=== PATIENT | female | born 2000 | race African-American/Black ===

== ENCOUNTER 2020-08-30 18:55 | Emergency (ER) | payer SELFPAY ==
--- NOTE | 2020-08-30 20:19 | ER Document Report ---
ED Medical Screen (RME) - General Chief Complaint: Abdominal Pain Stated Complaint: ABDOMINAL/BACK PAIN, PAINFUL URINATION Time Seen by Provider: 08/30/20 20:10 Mode of Arrival: Ambulatory Information source: Patient Notes: 19-year-old female presented to ED for bilateral abdominal pain pelvic pain. She states her last menstrual period started on 08/26/2020. She states it is a normal time for her normal menstrual cycle. But this was heavier than normal. She states was recently diagnosed with ovarian cyst was larger than the ovary. Patient states she does have a history of hypothyroid anemia anxiety depression tonsils and adenoids removed ovarian cyst and she does use a vapor cigarette. She does not drink or use any drugs. I have greeted and performed a rapid initial assessment of this patient. A comprehensive ED assessment and evaluation of the patient, analysis of test results and completion of medical decision making process will be conducted by an additional ED providers. - Related Data Allergies/Adverse Reactions: No Known Allergies Allergy (Unverified 08/30/20 20:11) Physical Exam - Vital signs Vitals: Temp 98.2 F 08/30/20 20:14 Course - Vital Signs Vital signs: Temp Pulse Resp BP Pulse Ox 98.2 F 78 12 134/82 H 100 08/30/20 20:18 08/30/20 20:18 08/30/20 20:18 08/30/20 20:18 08/30/20 20:18
[2020-08-30 21:33] LABS: APPEARANCE,URINE SLIGHTLY-CLOUDY; BILIRUBIN,URINE NEGATIVE (NEGATIVE); COLOR,URINE YELLOW; GLUCOSE, URINE NEGATIVE (NEGATIVE); KETONES,URINE NEGATIVE (NEGATIVE); LEUKOCYTE ESTERASE,URINE NEGATIVE (NEGATIVE); NITRITE,URINE NEGATIVE (NEGATIVE); PROTEIN,URINE 30 mg/dL (NEGATIVE); URINE SPECIFIC GRAVITY 1.034
--- NOTE | 2020-08-30 21:58 | RADIOLOGY REPORT (SQ) ---
US PELVIS TRANSVAGINAL HISTORY: 19 years Female bilateral pelvic pain. COMPARISON: No relevant studies are available for comparison. Technique: Transvaginal Imaging of the pelvis was performed. Color and spectral imaging was performed. Uterus: The uterus measures 8.6 x 4.9 x 3.7 cm. The endometrium is normal measuring 3.4 mm. Cervix is closed measuring 2.3 cm. There is a small nabothian cyst in the cervix which measures up to 5 mm. Right Ovary: The ovary measures 2.9 x 2.5 x 2.3 cm and is morphologically normal.. Normal color and spectral doppler waveforms Left Ovary: The ovary measures 3.4 x 1.9 x 2.2 cm and is morphologically normal.. Normal color and spectral doppler waveforms Other: No adnexal mass. No free fluid. IMPRESSION: Unremarkable pelvic ultrasound.
[2020-08-30 22:15] LABS: ABSOLUTE EOSINOPHILS # (AUTO) 0.6 10^3/uL (0.0-0.6); ABSOLUTE LYMPHOCYTES (AUTO) 3.1 10^3/uL (0.5-4.7); ABSOLUTE MONOCYTES (AUTO) 0.6 10^3/uL (0.1-1.4); ABSOLUTE NEUT (AUTO) 4.1 10^3/uL (1.7-8.2); BASOPHILS % (AUTO) 0.6 % (0-2); EOSINOPHILS % (AUTO) 7.4 % (0-6); HEMATOCRIT 34.1 % (36.0-47.0); HEMOGLOBIN 11.1 g/dL (12.0-15.5); MEAN CORPUSCULAR HEMOGLOBIN 23.6 pg (27.0-33.4); MEAN CORPUSCULAR HGB CONC 32.6 g/dL (32.0-36.0); MEAN CORPUSCULAR VOLUME 73 fl (80-97); MONOCYTES % (AUTO) 7.1 % (3-13); PLATELET COUNT 310 10^3/uL (150-450); RED CELL DISTRIBUTION WIDTH 20.1 % (11.5-14.0); SEGMENTED NEUTROPHILS % (AUTO) 47.9 % (42-78); TOTAL CELLS COUNTED % (AUTO) 100 %; WHITE BLOOD COUNT 8.5 10^3/uL (4.0-10.5)
[2020-08-30 22:38] LABS: ALBUMIN 4.1 g/dL (3.5-5.0); ALKALINE PHOSPHATASE 91 U/L (38-126); ANION GAP 10 (5-19); ASPARTATE AMINO TRANSFERASE 21 U/L (14-36); BILIRUBIN,DIRECT 0.1 mg/dL (0.0-0.4); BILIRUBIN,TOTAL 0.3 mg/dL (0.2-1.3); BLOOD UREA NITROGEN 15 mg/dL (7-20); CALCIUM 9.5 mg/dL (8.4-10.2); CARBON DIOXIDE 26 mmol/L (22-30); CHLORIDE 101 mmol/L (98-107); GLUCOSE 85 mg/dL (75-110); POTASSIUM 4.5 mmol/L (3.6-5.0); TOTAL PROTEIN 7.1 g/dL (6.3-8.2)
[2020-08-31] MEDS ORDERED: KETOROLAC TROMETHAMINE INJ/PF 30 MG/1 ML SDV IV ONE (08:14)
[2020-08-31] MEDS ORDERED: KETOROLAC TROMETHAMINE 60 MG/2 ML SDV IM ONE (08:17)
[2020-08-31 08:21] LABS: BACTERIA (WET MOUNT) 4+ BACTERIA SEEN; EPITHELIALS (WET MOUNT) 4+ EPITHELIALS SEEN; RBCS (WET MOUNT) 1+ RBCS SEEN; T.VAGINALIS (WET MOUNT) NO TRICHOMONAS SEEN; WBCS (WET MOUNT) 1+ WBCS SEEN; YEAST (WET MOUNT) NO YEAST SEEN
--- NOTE | 2020-08-31 08:36 | RADIOLOGY REPORT (SQ) ---
EXAM DESCRIPTION: CT ABD/PELVIS NO ORAL OR IV IMAGES COMPLETED DATE/TIME: 08/31/2020 8:22 am REASON FOR STUDY: RLQ R flank COMPARISON: Pelvic ultrasound 08/30/2020 TECHNIQUE: CT scan of the abdomen and pelvis performed without intravenous or oral contrast. Images reviewed with lung, soft tissue, and bone windows. Reconstructed coronal and sagittal MPR images revi ewed. All images stored on PACS. All CT scanners at this facility use dose modulation, iterative reconstruction, and/or weight based d osing when appropriate to reduce radiation dose to as low as reasonably achievable (ALARA). [facility]: Dose Right [facility]: CareDose [facility]: Dose Right [facility]: Teradose 4D [facility]: Wander RADIATION DOSE: CT Rad equipment meets quality standard of care and radiation dose reduction techniq ues were employed. CTDIvol: 18.9 mGy. DLP: 1083 mGy-cm.mGy. LIMITATIONS: None. FINDINGS: LOWER CHEST: No significant findings. No nodules or infiltrates. NON-CONTRASTED LIVER, SPLEEN, ADRENALS: Evaluation limited by lack of IV contrast. No identified sign ificant masses. PANCREAS: No masses. No peripancreatic inflammatory changes. GALLBLADDER: No identified stones by CT criteria. No inflammatory changes to suggest cholecystitis. RIGHT KIDNEY AND URETER: No suspicious masses. Assessment limited by lack of IV contrast. No signif icant calcifications. No hydronephrosis or hydroureter. LEFT KIDNEY AND URETER: No suspicious masses. Assessment limited by lack of IV contrast. No signifi cant calcifications. No hydronephrosis or hydroureter. AORTA AND RETROPERITONEUM: No aneurysm. No retroperitoneal masses or adenopathy. BOWEL AND PERITONEAL CAVITY: No obvious masses or inflammatory changes. No free fluid. APPENDIX: Not discretely identified ; no right lower quadrant inflammatory changes PELVIS, BLADDER, AND ABDOMINAL WALL:No abnormal masses. No free fluid. Bladder normal. BONES: No significant findings. OTHER: No other significant finding. IMPRESSION: NO SIGNIFICANT OR ACUTE PROCESS IN THE ABDOMEN OR PELVIS. COMMENT: Quality ID # [id number]: Final reports with documentation of one or more dose reduction techniques (e.g., Automated exposure control, adjustment of the mA and/or kV according to patient size, use of iterative reconstruction technique) TECHNICAL DOCUMENTATION: JOB ID: [id number] 2010 [employer]- All Rights Reserved Reading location - IP[facility]workstation name: [email or web address]
--- NOTE | 2020-08-31 08:41 | ER Document Report ---
ED General - General Mode of Arrival: Ambulatory - Related Data Home Medications: synthroid, iron, lexapro <HAWA OLSON - Last Filed: 08/31/20 08:35> - General Mode of Arrival: Ambulatory Information source: Patient <KRISTINAROSEMARYMARIELENA - Last Filed: 08/31/20 10:48> - General Chief Complaint: Abdominal Pain Stated Complaint: ABDOMINAL/BACK PAIN, PAINFUL URINATION Time Seen by Provider: 08/30/20 20:10 Notes: 19-year-old female history of ovarian cysts presents with approximately 1-2 days gradual onset severe constant non-migrating right and left lower abdominal pain similar to prior episode of abdominal pain she had approximately 1-1/2 months ago for which she was seen in outside ED and had a CT scan that showed ovarian cysts and resolved thereafter. Patient also complaining of heavy periods using approximately 7 pads per day since August 27 and few loose stools that were nonbloody and nonblack that has now resolved. Patient denies any vomiting, fever, vaginal discharge, dysuria, frequency, urgency, flank pain, prior abdominal surgeries, diabetes, HIV, immunocompromise history, recent (had one distant first trimester spontaneous ), trauma, dizziness, syncope, chest pain, shortness of breath, fever, cough, myalgia (HAWA OLSON) - HPI Notes: Patient presents with a history of abdominal pain as well as of heavy periods. This is been going on for several months. To get worse last night. The pain is intermittent. Is moderate to severe. It is a crampy in nature mainly in the bilateral lower quadrants. Nothing significant makes it better or worse. It does radiate from one side to the other. (MARIELENA ADAMS) - Related Data Allergies/Adverse Reactions: No Known Allergies Allergy (Unverified 08/30/20 20:11) Past Medical History - General Information source: Patient - Social History Smoking Status: Never Smoker Chew tobacco use (# tins/day): No Frequency of alcohol use: None Drug Abuse: None Patient has homicidal ideation: No <HAWA OLSON - Last Filed: 08/31/20 08:35> - General Information source: Patient - Social History Smoking Status: Never Smoker Frequency of alcohol use: None Drug Abuse: None Family History: Reviewed & Not Pertinent <MARIELENA ADAMS - Last Filed: 08/31/20 10:48> Review of Systems <HAWA OLSON - Last Filed: 08/31/20 08:35> - Review of Systems Constitutional: denies: Chills, Fever Cardiovascular: denies: Chest pain, Palpitations Respiratory: denies: Cough, Short of breath -: Yes All other systems reviewed and negative <BRYANMARIELENA Maranda - Last Filed: 08/31/20 10:48> - Review of Systems Notes: REVIEW OF SYSTEMS: CONSTITUTIONAL : Denies fever, chills, or sweats. EENT: Denies recent cold/sinus symptoms, denies throat pain CARDIOVASCULAR: Denies chest pain, TROY RESPIRATORY: Denies cough, denies shortness of breath. GASTROINTESTINAL: + abdominal pain, -nausea/vomiting. GENITOURINARY: Denies difficulty urinating, painful urination. FEMALE GENITOURINARY: Denies abnormal vaginal bleeding, vaginal discharge. MUSCULOSKELETAL: Denies neck pain, back pain. SKIN: Denies rash or skin lesions. HEMATOLOGIC : Denies easy bruising or bleeding. LYMPHATIC: Denies swollen, enlarged glands. NEUROLOGICAL: Denies headache, denies change in gait. PSYCHIATRIC: Denies anxiety or stress or depression. (HAWA OLSON) Physical Exam <HAWA OLSON - Last Filed: 08/31/20 08:35> - Vital signs Interpretation: Normal - General General appearance: Appears well, Alert - HEENT Head: Normocephalic, Atraumatic Eyes: Normal Pupils: PERRL - Respiratory Respiratory status: No respiratory distress Chest status: Nontender Breath sounds: Normal Chest palpation: Normal - Cardiovascular Rhythm: Regular Heart sounds: Normal auscultation Murmur: No - Abdominal Inspection: Normal Distension: No distension Bowel sounds: Normal Tenderness: Tender - Some minimal tenderness diffusely. No rebound or guarding. Organomegaly: No organomegaly - Back Back: Normal, Nontender - Extremities General upper extremity: Normal inspection, Nontender, Normal color, Normal ROM, Normal temperature General lower extremity: Normal inspection, Nontender, Normal color, Normal ROM, Normal temperature, Normal weight bearing. No: Rhonda's sign - Neurological Neuro grossly intact: Yes Cognition: Normal Orientation: AAOx4 Rao Coma Scale Eye Opening: Spontaneous Randolph Coma Scale Verbal: Oriented Randolph Coma Scale Motor: Obeys Commands Randolph Coma Scale Total: 15 Speech: Normal Motor strength normal: LUE, RUE, LLE, RLE Sensory: Normal - Psychological Associated symptoms: Normal affect, Normal mood - Skin Skin Temperature: Warm Skin Moisture: Dry Skin Color: Normal <MARIELENA ADAMS - Last Filed: 08/31/20 10:48> - Vital signs Vitals: Temp 98.2 F 08/30/20 20:14 - Notes Notes: PHYSICAL EXAMINATION: GENERAL: Well-appearing, well-nourished and in no acute distress, sleeping comfortably when I entered room and easily arousable HEAD: Atraumatic, normocephalic. EYES: Pupils equal round and appropriate constriction, sclera anicteric, conjunctiva are normal. ENT: nares patent, moist mucous membranes. NECK: Normal range of motion, supple without lymphadenopathy LUNGS: Breath sounds clear to auscultation bilaterally and equal. No wheezes rales or rhonchi. HEART: Regular rate and rhythm without murmurs ABDOMEN: Soft, mild bilateral lower quadrant tenderness, no rebound, no guarding, no CVA tenderness PELVIC: Very scant maroon blood in vaginal vault, scant white discharge, normal os inspection with no os erythema or discharge from os, no CMT, no adnexal tenderness or masses. Exam chaperoned by ERLINDA Hudson EXTREMITIES: Normal range of motion, no pitting or edema. No cyanosis. NEUROLOGICAL: Awake, alert, conversing appropriately, moves all extremities spontaneously. PSYCH: Normal mood, normal affect. SKIN: Warm, Dry, normal turgor, no rashes or lesions noted. (HAWA OLSON) Course - Laboratory Result Diagrams: 08/30/20 21:38 08/30/20 21:38 <HAWA OLSON - Last Filed: 08/31/20 08:35> - Laboratory Result Diagrams: 08/30/20 21:38 08/30/20 21:38 - Diagnostic Test Radiology reviewed: Image reviewed, Reports reviewed <MARIELENA ADAMS - Last Filed: 08/31/20 10:48> - Re-evaluation Re-evalutation: 08/31/20 08:43 Very well-appearing patient, mild bilateral lower quadrant tenderness greater on right without any rebound or guarding, no acute surgical abdomen. Patient's hemoglobin reassuring, very minimal bleeding currently, benign pelvic exam and no signs of torsion or hemorrhagic cyst rupture on transvaginal ultrasound. no risk factors for GC so send swabs to lab, no indication to treat empirically at this time. Rule out appendicitis with CT Noncon given BMI of 50. Less likely diverticulitis versus renal colic. Patient turned over pending results of CT with likely discharge with PCP and [facility] follow-up. (HAWA OLSON) - Vital Signs Vital signs: Temp Pulse Resp BP Pulse Ox 98.7 F 72 18 125/65 100 08/31/20 02:42 08/31/20 02:42 08/31/20 02:42 08/31/20 02:42 08/31/20 02:42 - Laboratory Laboratory results interpreted by me: 08/30/20 08/30/20 08/30/20 20:56 21:38 21:38 Hgb 11.1 L Hct 34.1 L MCV 73 L MCH 23.6 L RDW 20.1 H Eos % (Auto) 7.4 H Sodium 136.8 L Urine Protein 30 H Urine Blood MODERATE H Urine Urobilinogen 2.0 H Discharge <HAWA OLSON - Last Filed: 08/31/20 08:35> <MARIELENA ADAMS - Last Filed: 08/31/20 10:48> - Discharge Clinical Impression: Menometrorrhagia Abdominal pain Qualifiers: Abdominal location: lower abdomen, unspecified Qualified Code(s): R10.30 - Lower abdominal pain, unspecified Condition: Stable Disposition: HOME, SELF-CARE Instructions: Abdominal Pain ([facility]), Menorrhagia ([facility]), Endometriosis ([facility]) Prescriptions: Hydrocodone/Acetaminophen [Zeigler 5-325 mg Tablet] 1 tab PO Q6 PRN 3 Days #12 tablet PRN Reason: For Pain Forms: Return to Work Referrals: MEHRDAD MARIA MD [ACTIVE STAFF] - Follow up in 1 week
[2020-08-31 09:35] LABS: CHLAM PCR NOT DETECTED (NOT DETECT)
[2020-08-31 11:06] VITALS: BP 124/62
== END 2020-08-31 11:05 | disposition home or self-care (01) ==
LOC: ER 18:55
DX: R10.31 Right lower quadrant pain (principal); R10.32 Left lower quadrant pain; R10.2 Pelvic and perineal pain; R10.817 Generalized abdominal tenderness; N92.1 Excessive and frequent menstruation with irregular cycle; Z87.42 Personal history of other diseases of the female genital tract
CPT/HCPCS: 99285; 96372; 36415; 87086; 87210; 84703; 85025; 87088; 80053; 81001; 87186; 87491; 87591; 76830; 74176; J1885